=== PATIENT | female | born 1950 | race Caucasian/White ===

== ENCOUNTER → 2019-11-08 13:34 | Outpatient (CLI) | payer MEDICARE, MEDICAID, SELFPAY ==
--- NOTE | 2019-11-08 13:40 | MM_ITS ---
PROCEDURE: MM DIG MAMM BI DX W/CAD Digital Breast Tomosynthesis Included CLINICAL INDICATION: BREAST PAIN L, L BREAST MASS there is a history of breast cancer in the patient's niece. The patient complains of tenderness near the nipple left breast. COMPARISON: No exams were available for comparison TECHNIQUE: Standard CC and MLO images and 3D Tomosynthesis was obtained. R2 CAD reviewed. FINDINGS: Moderate diffuse scattered fibroglandular densities are seen throughout both breasts. Prominent linear calcifications are seen in both breast primarily in the subareolar regions most consistent with secretory disease. There are 2 mole markers right breast. There is a somewhat suspicious spherical mass seen just deep to the nipple left breast. It has somewhat ill-defined borders. Ultrasound performed the same date showed a complex cyst at this location which was somewhat tender to pressure of the transducer measuring 1.2 x 1.3 by 0.9 cm. There are couple nodes seen in the left axilla with loss of the normal architecture. There is no other suspicious lesion in either breast and no suspicious microcalcifications. Since there are no previous studies for comparison recommend the patient be scheduled for biopsy and or cyst aspiration. IMPRESSION: Moderate breast density with somewhat suspicious asymmetric density just deep to the nipple left breast at the site of the patient's complaint shown to be a complex cystic structure on ultrasound. BI-RAD Category: 4 Suspicious Abnormality - Biopsy Considered FOLLOW-UP: BIO Biopsy Recommended (A letter has been sent to the patient regarding results of the study.) Dictated by: Dr. Ed Bradford MD 11/08/2019 20:[address] Ed Bradford MD in [place] 11/08/2019 20:47
--- NOTE | 2019-11-08 13:41 | US_ITS ---
PROCEDURE: US BREAST LT COMPLETE CLINICAL INDICATION: BREAST PAIN L, L BREAST MASS COMPARISON: No exams were available for comparison FINDINGS: There is a small oval cystic lesion near the nipple at the 12 o'clock position measuring 0.6 by 0.6 x 0.3 cm. Just behind the nipple there is a hypoechoic cystic appearing structure with internal echoes measuring 1.2 by 1.3 x 0.9 cm. Some of the images show a somewhat ill-defined border of the lesion at the interface with the adjacent breast parenchyma. There are 2 nodes in the axilla both showing loss of normal echo architecture. IMPRESSION: Somewhat suspicious and likely complex cyst at the site of the patient's complaint the recommend the patient be scheduled for biopsy and or cyst aspiration Dictated by: Dr. Ed Bradford MD 11/08/2019 20:[address] Ed Bradford MD in [place] 11/08/2019 20:50
== END ==
PROVIDERS: PCP Internal Medicine Adolescent Medicine; Visit Provider Nurse Practitioner Family
DX: N64.4 Mastodynia (principal); N63.20 Unspecified lump in the left breast, unspecified quadrant
CPT/HCPCS: 76641; 77062; 77066; G0279

== ENCOUNTER → 2019-12-04 12:41 | Outpatient (CLI) | payer MEDICARE, MEDICAID, SELFPAY ==
--- NOTE | 2019-12-04 13:40 | US_ITS ---
PROCEDURE: US FNA BREAST CLINICAL INDICATION: L CYST BREAST Complex cystic lesion of the left breast with abnormal mammogram COMPARISON: US US BREAST LT COMPLETE from 11/08/2019 FINDINGS: Following obtaining informed consent and time-out procedure using sonographic guidance and local anesthesia 1 percent buffered lidocaine, 21 gauge needle was inserted into the complex cystic lesion of the left breast. Approximately 5 cc of turbid whitish material was aspirated and sent for cytology and culture and sensitivity. The cavity was nearly completely evacuated. There was some residual hypo echogenicity at this area for which fine needle aspiration was performed. Following this, under sonographic guidance FNA was performed of a small left axillary lymph node. There were no immediate complications. Cytology: Left axillary node: Negative for malignant cells Breast FNA 1.: Negative for malignant cells Breast FNA 2: Negative for malignant cells The fluid was also sent for culture and sensitivity which is not available at the time of this reading. IMPRESSION: Status post ultrasound-guided left breast and axillary node FNA without immediate complications as described above. The complex cystic lesion in the retroareolar area did appear to represent a small abscess. Please correlate with culture and sensitivity Dictated by: Timothy Acosta MD 12/10/2019 13:07 Timothy Acosta MD in [place] 12/10/2019 13:07
== END ==
PROVIDERS: PCP Internal Medicine Adolescent Medicine; Visit Provider Surgery
DX: N63.32 Unspecified lump in axillary tail of the left breast (principal)
CPT/HCPCS: 10005; 10006; 76942; 87070; 87077; 87186; 87205; 88173; 88305

== ENCOUNTER 2024-01-11 07:32 | Outpatient (CLI) | payer MEDICARE, MEDICAID, SELFPAY ==
[2024-01-11 09:03] LABS: Occult Blood,Stool Negative (Negative)
[2024-01-11 15:56] LABS: Occult Blood,Stool Negative (Negative)
== END 2024-01-11 23:59 | disposition home or self-care (01) ==
PROVIDERS: Nurse Practitioner Family; PCP Internal Medicine Adolescent Medicine; Visit Provider Internal Medicine Adolescent Medicine
DX: R53.81 Other malaise (principal); D64.9 Anemia, unspecified
CPT/HCPCS: 82272; G0328

== ENCOUNTER 2024-06-21 10:20 | Outpatient (CLI) | payer MEDICARE, MEDICAID, SELFPAY ==
[2024-06-21 11:04] LABS: Occult Blood,Stool Positive (Negative)
== END 2024-06-21 23:59 | disposition home or self-care (01) ==
LOC: LAB.DROPOF 10:21
PROVIDERS: PCP Internal Medicine Adolescent Medicine; Visit Provider Internal Medicine Adolescent Medicine
DX: D64.9 Anemia, unspecified (principal)
CPT/HCPCS: 82272; G0328

== ENCOUNTER 2024-07-10 06:35 | Day surgery (SDC) | payer MEDICARE, MEDICAID, SELFPAY ==
[2024-07-09 14:57] VITALS: BMI 45.7
[2024-07-10] VITALS (7 sets, daily range): BP systolic 99–153; BP diastolic 54–85; PULSE 60–73; RESP 18–22; TEMP 36.1–36.4; O2SAT 94–99
--- NOTE | 2024-07-10 07:02 | P.HP_ITS ---
HPI HPI HPI: This is a 73-year-old female who presents for EGD/colonoscopy. She has a long- standing history of anemia. No definitive hematemesis/melena. No bright red blood per rectum. [facility] Disclaimer: The information contained in this section may have been updated after the patient was seen, as this information can be updated by other users. Medical History Hereditary and idiopathic neuropathy Cardiac murmur Hyperlipemia Normocytic anemia Physical debility Gout Obesity Muscle spasm Chronic pain Hypothyroid Diabetes Hypertension Osteoarthritis Polio Surgical History (Updated 07/10/24 @ 07:16 by Kinsey Chávez RN) H/O removal of cyst History of cholecystectomy History of surgery on lower extremity History of surgery on arm Family History (Updated 07/10/24 @ 07:16 by Kinsey Chávez RN) Heart disease Breast cancer Cancer Social History Smoking Status: Former smoker alcohol intake: never substance use type: denies use current occupational status: disabled Travel in the last 8 weeks: None Have you lived/traveled outside [place] in past 30 days?: No Contact w/someone who lives/traveled outside US past 30 days?: No Exposure to someone with infectious disease in past 14 days?: No Do you have a fever (greater than 100.4 F or 38 C)?: No Have you tested positive for COVID-19: No Exposed to someone with COVID-19 in past 14 days?: No Do you have a sore throat?: No Do you have a cough?: No Do you have any weakness?: No Do you have any diarrhea?: No Are you experiencing any unusual bleeding?: No Do you have any muscle aches/pain?: No Do you have any abdominal pain?: No Are you experiencing loss of taste or smell?: No Other Medical History Have you received the Pneumonia Vaccine: Yes Review of Systems Review of Systems Review of systems:: pertinent systems reviewed and negative unless documented below Meds Home Medications and Allergies Home Medications ?Medication ?Instructions ?Recorded ?Confirmed ?Type acetaminophen 500 mg capsule 1,000 mg PO QID PRN Pain 11/21/19 07/09/24 History allopurinol 100 mg tablet 100 mg PO QHS 11/21/19 07/09/24 History allopurinol 300 mg tablet 300 mg PO QAM 11/21/19 07/09/24 History colchicine 0.6 mg capsule 0.6 mg PO QAM 11/21/19 07/09/24 History docusate sodium 250 mg capsule 250 mg PO BID 11/21/19 07/09/24 History fluticasone furoate 50 50 mcg inhalation DAILY 11/21/19 07/09/24 History mcg/actuation blister powder for inhalation furosemide 20 mg tablet (Lasix) 40 mg PO QAM 11/21/19 07/09/24 History gabapentin 100 mg capsule 100 mg PO TID 11/21/19 07/09/24 History hydrocodone 10 mg-acetaminophen 1 tab PO Q8H PRN Pain 11/21/19 07/09/24 History 300 mg tablet levothyroxine 50 mcg capsule 50 mcg PO DAILY 11/21/19 07/09/24 History loratadine 10 mg tablet (Allergy 10 mg PO DAILY 11/21/19 07/09/24 History Relief (loratadine)) losartan 100 mg tablet 100 mg PO DAILY 11/21/19 07/09/24 History polyethylene glycol 3350 17 gram 17 g PO DAILY 11/21/19 07/09/24 History oral powder packet (Miralax) potassium chloride 20 mEq 20 meq PO BID 11/21/19 07/09/24 History tablet,extended release sennosides 8.6 mg capsule (senna) 17.2 mg PO BID PRN Constipation 11/21/19 07/09/24 History sitagliptin phosphate 100 mg 50 mg PO DAILY 11/21/19 07/09/24 History tablet (Januvia) metformin 500 mg tablet 500 mg PO DAILY 12/12/19 07/09/24 History sod picosulf 10 mg-magnes 3.5 175 ml PO DAILY 2 doses #350 mL 06/22/24 07/09/24 Rx gram-citric 12 gram/175 mL oral solution (Clenpiq) baclofen 10 mg tablet 10 mg PO DAILY 07/09/24 07/09/24 History carvedilol 12.5 mg tablet 12.5 mg PO BID 07/09/24 07/09/24 History ferrous sulfate 324 mg (65 mg 324 mg PO DAILY 07/09/24 07/09/24 History iron) tablet,delayed release montelukast 10 mg tablet 10 mg PO DAILY 07/09/24 07/09/24 History (Singulair) pantoprazole 40 mg tablet,delayed 40 mg PO DAILY 07/09/24 07/09/24 History release New Prescriptions to Start Prescriptions: Allergies Allergy/AdvReac Type Severity Reaction Status Date / Time sulfamethoxazole (From Allergy Unknown Verified 07/10/24 07:10 Bactrim) allergy reaction trimethoprim (From Bactrim) Allergy Unknown Verified 07/10/24 07:10 allergy reaction Exam Data for Last 24 hours I & O for Last 24 hours: Intake & Output 07/07/24 07/08/24 07/09/24 07/10/24 11:59 11:59 11:59 11:59 Weight 242 lb Constitutional Constitutional: no acute distress *Routine HEENT Exam Head: Present normocephalic Eye: Present EOMI ENT: Present mucous membranes moist *Routine Neck Exam Neck: Absent tenderness *Routine Respiratory Exam Respiratory: Absent respiratory distress *Routine Cardiovascular Exam Cardiovascular: Absent tachycardia *Routine Abdominal Exam Abdominal: Present soft and obese *Routine Rectal Exam Rectal:: deferred *Routine Genitalia Exam Genitalia:: deferred *Routine Extremities Exam Extremities: Absent tenderness *Routine Skin Exam Skin: Absent erythema *Routine Neurological Exam Neurological: Present alert Assessment and Plan *Assessment and plan (1) Anemia: Status: Acute Qualifiers: Anemia type: unspecified type Qualified Code(s): D64.9 - Anemia, unspecified Category: Medical Code(s): D64.9 - Anemia, unspecified Plan: Esophagogastroduodenoscopy/colonoscopy today I have discussed the risks and benefits including, but not limited to: Bleeding Infection Damage to surrounding tissue Inherent risks of sedation The patient agrees to proceed.
--- NOTE | 2024-07-10 07:04 | HMH.SCOPE ---
Procedure: Date: 07/10/24 Patient Date of :: 1950 Procedure Performed:: Esophagogastroduodenoscopy with biopsy Colonoscopy with polypectomy Indications:: Anemia Performing Provider:: Obed Silverman MD Referring Provider:: . Sedation:: Monitored anesthesia care Procedure:: After informed consent was obtained the patient was taken to the endoscopy suite. Sedation ensued after the patient was transferred to the left lateral decubitus position. Pulse, blood pressure, and oxygen saturation were monitored throughout the procedure. The endoscope was advanced beyond the duodenal bulb. Retroflexion within the gastric lumen was accomplished. The gastroscope was carefully removed. Digital rectal exam revealed no significant abnormality. The colonoscope was placed in position. The entire colon was evaluated. The colonoscope was carefully removed and the patient was transferred to recovery in stable condition. Please see findings and specimens below for detail. Findings:: Gastroesophageal junction at 30 cm Small sliding hiatal hernia Mild to moderate patchy gastritis No active bleeding Bowel preparation relatively poor Moderate tortuosity Fairly severe spasticity/lack of relaxation Hemorrhoidal cushions Polyps (see specimens) Specimens:: Antral biopsy Adjacent lobulated polyps at 55 cm (cold snare) Pedunculated polyp at 20 cm (hot snare) Large complex pedunculated polyp at 8 cm (hot snare) Recommendations:: Timing of repeat colonoscopy is pending pathology will likely be around 1-2 years with extended/alternate bowel preparation. Follow-up pathology Continue proton pump inhibition Complications:: No immediate Estimated blood obtained (mL): 1 Colonoscopy Component Colonoscopy Component Was a colonoscopy performed during today's procedure?: Yes Recommended follow up colonoscopy of at least 10 years?: No If no, follow up colonoscopy recommended in ___ years?: (See above) Reason for not recommending >/= 10 yr follow-up interval?: (See above)
--- NOTE | 2024-07-10 09:28 | EXP.ANES.CKL ---
[facility] Disclaimer: The information contained in this section may have been updated after the patient was seen, as this information can be updated by other users. Medical History Hereditary and idiopathic neuropathy Cardiac murmur Hyperlipemia Normocytic anemia Physical debility Gout Obesity Muscle spasm Chronic pain Hypothyroid Diabetes Hypertension Osteoarthritis Polio Surgical History (Updated 07/10/24 @ 07:16 by Kinsey Chávez RN) H/O removal of cyst History of cholecystectomy History of surgery on lower extremity History of surgery on arm Family History (Updated 07/10/24 @ 07:16 by Kinsey Chávez RN) Other Breast cancer Cancer Heart disease Social History (Updated 07/10/24 @ 07:17 by Kinsey Chávez RN) Smoking Status: Former smoker alcohol intake: never substance use type: denies use current occupational status: disabled Travel in the last 8 weeks: None caffeine: Yes [facility] Anesthesia Checklist Patient Identification Patient Identification: Verbal (Name & ) Structural Data Admitted From: Home Planned Operative Procedure/s: egd,colonoscopy Consent for Planned Operative Procedure(s) Verified: Yes NPO Status Verified Time NPO: 00:00 Airway Assessment Mallampati Score:: Class II C-Spine Mobility Assessed: Yes TMJ Mobility Assessed: Yes Dentition: Edentulous Neurological Assessment Level of Consciousness: Awake, Alert and Appropriate Anesthesia Plan Anesthesia Risk discussed: Yes Anesthesia Plan: Verified ASA Class: III Anesthesia Type: MAC
[2024-07-10 11:08] LABS: POC Glucose,Bedside 159 (70-110)
== END 2024-07-10 09:10 | disposition home or self-care (01) ==
PROVIDERS: PCP Internal Medicine Adolescent Medicine; Visit Provider Surgery
PROC: 0DJ08ZZ Inspection of Upper Intestinal Tract, Via Natural or Artificial Opening Endoscopic (ICD-10-PCS; CPT 45378; principal; 2024-07-10 07:30)
DX: D64.9 Anemia, unspecified (principal); K44.9 Diaphragmatic hernia without obstruction or gangrene; K29.70 Gastritis, unspecified, without bleeding; K64.9 Unspecified hemorrhoids; K63.5 Polyp of colon
CPT/HCPCS: 43239; 45385; 82962; 88305

== ENCOUNTER 2024-09-14 09:55 | Outpatient (CLI) | payer MEDICARE, MEDICAID, SELFPAY ==
--- OUTSIDE RECORDS SUMMARY | 2024-08-22 08:20 | XMS_ITS | Continuity of Care Document ---
Author Organization [address] [place] [address] Address [address] [facility] [address] [place] [address] Phone Care Team Providers Care Photographic Spotter Name Role Phone Shell Stevenson OD Unavailable Unavailable Allergies, Adverse Reactions, Alerts Substance Reaction Status Criticality sulfamethoxazole Active No Informat ion trimethoprim Active No Information sulfamethoxazole Active No Informat ion Medications Medication Instructions Dosage Effective Dates (start - stop) Status Comments Januvia 50 mg tablet - Activ e baclofen 10 mg tablet - Acti ve docusate sodium 250 mg capsule - Active ferrous sulfate 325 mg (65 mg iron) tablet - Active triamcinolone acetonide 0.1 % topical cream - Active Vitamin C 500 mg tablet - Ac tive carvedilol 12.5 mg tablet - Active pantoprazole 40 mg tablet,delayed release - Active furosemide 40 mg tablet - Ac tive Gas Relief Extra Strength 125 mg chewable tablet - Active Clenpiq 10 mg-3.5 gram-12 gram/175 mL oral solution - Active balsam angelina-castor oil topical ointment - Active montelukast 10 mg tablet - A ctive calcium carbonate 600 mg-vitamin D3 5 mcg (200 unit) tablet - Active methocarbamol 500 mg tablet - Active senna 8.6 mg tablet - Active carvedilol 3.125 mg tablet - Active Chest Congestion Relief 100 mg/5 mL oral liquid - Active famotidine 40 mg tablet - Ac tive ondansetron HCl 4 mg tablet - Active loratadine 10 mg tablet - Ac tive acetaminophen 500 mg tablet - Active docusate calcium 240 mg capsule - Active ROBAFEN 100 MG/5ML LIQUID - Active hydrochlorothiazide 25 mg tablet - Active levothyroxine 50 mcg tablet - Active tizanidine 4 mg tablet - Act seema colchicine 0.6 mg tablet - A ctive metformin 500 mg tablet - Ac tive hydrocodone 10 mg-acetaminophen 325 mg tablet - Active Januvia 100 mg tablet - Acti ve fluticasone propionate 50 mcg/actuation nasal spray,suspension - Active allopurinol 300 mg tablet - Active losartan 100 mg tablet - Act seema potassium chloride ER 20 mEq tablet,extended release - Active allopurinol 100 mg tablet - Active gabapentin 100 mg capsule - Active Lagevrio 200 mg capsule (EUA) - Active ketoconazole 2 % topical cream - Active nystatin 100,000 unit/gram topical powder - Active Humalog U-100 Insulin 100 unit/mL subcutaneous cartridge inject by subcutaneous route per prescriber's instructions. Insulin dosing requires individualization. 0.00 - Active furosemide 20 mg tablet take 1 tablet by oral route every day 20 MG - Active Keppra 250 mg tablet take 2 tablet by oral route 2 times every day 500 MG - Active Procedures Procedure Date REMOVE IMPACTED EAR WAX DEBRIDE NAIL 6 OR MORE Debride mycotic, thick nails or more J REMOVE IMPACTED EAR WAX DEBRIDE NAIL 6 OR MORE DEBRIDE NAIL 6 OR MORE FUNDUS PHOTOGRAPHY COMPRE OPH EXAM EST PT 1/ DEBRIDE NAIL 6 OR MORE Low extemity neur exam docum DEBRIDE NAIL 6 OR MORE Low extemity neur exam docum DEBRIDE NAIL 6 OR MORE Diabetic Foot Exam Performed HEARING SERVICE, MISCELLANEOUS DEBRIDE NAIL 6 OR MORE Diabetic Foot Exam Performed FUNDUS PHOTOGRAPHY EYE EXAM & TREATMENT DEBRIDE NAIL 6 OR MORE Diabetic Foot Exam Performed DEBRIDE NAIL 6 OR MORE NURSING FAC CARE SUBSEQ TRIM NAIL(S) EYE EXAM & TREATMENT NURSING FAC CARE SUBSEQ DEBRIDE NAIL 1-5 TRIM NAIL(S) DEBRIDE NAIL 6 OR MORE NURSING FAC CARE SUBSEQ TRIM SKIN LESION DEBRIDE NAIL 6 OR MORE Diabetic Foot Exam Performed EYE EXAM & TREATMENT TRIM SKIN LESION DEBRIDE NAIL 6 OR MORE Diabetic Foot Exam Performed TRIM SKIN LESION DEBRIDE NAIL 6 OR MORE COMPREHENSIVE HEARING TEST Assessment for hearing aid NURSING FAC CARE SUBSEQ DEBRIDE NAIL 6 OR MORE Diabetic Foot Exam Performed DEBRIDE NAIL 6 OR MORE Diabetic Foot Exam Performed EYE EXAM & TREATMENT DEBRIDEMENT OF NAIL(S) BY ANY METHOD(S); 6 OR MORE Diabetic Foot Exam Performed DEBRIDEMENT OF NAIL(S) BY ANY METHOD(S); 6 OR MORE Diabetic Foot Exam Performed DEBRIDEMENT OF NAIL(S) BY ANY METHOD(S); 6 OR MORE Diabetic Foot Exam Performed DEBRIDEMENT OF NAIL(S) BY ANY METHOD(S); 6 OR MORE Diabetic Foot Exam Performed EYE EXAM & TREATMENT DEBRIDEMENT OF NAIL(S) BY ANY METHOD(S); 6 OR MORE Diabetic Foot Exam Performed Compsve Oral Eval- New/Est Pat 18 Prophylaxis - Adult DEBRIDEMENT OF NAIL(S) BY ANY METHOD(S); 6 OR MORE Diabetic Foot Exam Performed Advance Directives Directive Yes / No Effective Date File Name No Information Encounters Encounter Description Practice Location Reason(s) For Visit Diagnoses Date Provider Providers Copied on Encounter [address] [place] [address], [id number], tel:[phone] [facility] No Information 5 Graham Goff. , [place]. [address] [place] [address], [id number], tel:[phone] [facility] ear care exam (chief complaint) Impacted cerumen, right ear 5 Gisella Garcia , [place]. Referring Provider: Joseph Galindo. [address] [place] [address], [id number], tel:[phone] [facility] Nail dystrophyOnycho gryphosisOther specified peripheral vascular diseasesType 2 diabetes mellitus with diabetic peripheral angiopathy without gangreneTinea unguium Jul- 5 [facility] , [place]. [address] [place] [address], [id number], tel:[phone] [facility] No Information 5 [place], [place]. [facility] [place], [address], [place], [place], [id number], [place] tel:[phone] [facility] Type 2 diabetes mellitus with diabetic peripheral angiopathy without gangreneOther specified peripheral vascular diseasesNail dystrophyOnycho gryphosis 5 [place], [place]. [facility] [place], [address] [place], [place] [address], [place], [place], [id number], [place] tel:[phone] [facility] ear care exam (chief complaint) Impacted cerumen, bilateral Dec-0 4 [place]. Referring Provider: Joseph Galindo. [facility] [place], [address] [place], [place] [address] [address], [place], [place], [id number], [place] tel:[phone] [facility] Tinea unguiumType 2 diabetes w diabetic peripheral angiopath w/o gangrene 4 Jeremy Navas [address] [place] [address], [address], [place], [address], [place]. [facility] [place], [address] [place], [place] [address] [address], [place], [place], [id number], [place] tel:[phone] [facility] Tinea unguiumType 2 diabetes w diabetic peripheral angiopath w/o gangrene 4 Jeremy Navas [address] [place] [address], [address], [place], [address], [place]. Referring Provider: Joseph Galindo. [facility] [place], [address] [place], [place] [address] [address], [place], [place], [id number], [place] tel:[phone] [facility] Diabetic eye exam (chief complaint) Cataract (chief complaint) Type 2 diabetes mellitus without complicationsCo mbined forms of age-related cataract, bilateral 4 [place]. Referring Provider: Joseph Galindo. [facility], [address] [place] [address] [address], [place], [place], [id number], [place] tel:[phone] [facility] Tinea unguiumType 2 diabetes w diabetic peripheral angiopath w/o gangrene 4 Jeremy Seaman. [address], [address], [place], [address], [place]. Referring Provider: Joseph Galindo. [facility], [address] [place], [place] [address] [address], [place], [place], [id number], [place] tel:[phone] [facility] No Information 4 Jeremy Seaman. [address], [address], [place], [address], [place]. [facility], [address] [place] [address] [address], [place], [place], [id number], [place] tel:[phone] [facility] Tinea unguiumType 2 diabetes w diabetic peripheral angiopath w/o gangrene 3 Jeremy Seaman. [address], [address], [place], [address], [place]. [facility], [address] [place], [place] [address] [address], [place], [place], [id number], [place] tel:[phone] [facility] Tinea unguiumType 2 diabetes w diabetic peripheral angiopath w/o gangrene 3 Jeremy Seaman. [address], [address], [place], [address], [place]. Referring Provider: Joseph Galindo. [address] [place] [address], [address] [place], [place] [address] [address], [place], [place], [id number], [place] tel:[phone] [facility] Encounter for exam of ears and hearing w/o abnormal findings 3 [place], [place]. Referring Provider: Joseph Galindo. [facility], [address] [place] [address] [address], [place], [place], [id number], [place] tel:[phone] [facility] Tinea unguiumType 2 diabetes w diabetic peripheral angiopath w/o gangrene 3 Jeremy Navas [address], [address], [place], [address], [place]. Referring Provider: Joseph Galindo. [address] [place] [address], [address] [place] [address] [address], [place], [place], [id number], [place] tel:[phone] [facility] Procedure and treatment not carried out for other reasons 3 Sheri-Hard jose de jesus Shabnam. [address], [address], [place], [address], [place]. Referring Provider: Joseph Galindo. [address] [place] [address], [address] [place], [place] [address] [address], [place], [place], [id number], [place] tel:[phone] [facility] No Information 3 Sheri-Hard jose de jesus Shabnam. [address], [address], [place], [address], [place]. [address] [place] [address], [address] [place], [place] [address] [address], [place], [place], [id number], [place] tel:[phone] [facility] Diabetic eye exam (chief complaint) Cataract (chief complaint) Combined forms of age-related cataract, bilateralType 2 diabetes mellitus without complications 2 [place]. Referring Provider: Joseph Galindo. [address] [place] [address], [address] [place], [place] [address] [address], [place], [place], [id number], [place] tel:[phone] [facility] Tinea unguiumType 2 diabetes w diabetic peripheral angiopath w/o gangrene 2 Jeremy Navas [address] [facility], [address], [place], [address], [place]. [address] [place] [address], [address] [place] [address] [address], [place], [id number], [place] tel:[phone] [facility] Tinea unguiumType 2 diabetes w diabetic peripheral angiopath w/o gangrene [address] [place] [address], [address], [place], [address], [place]. Referring Provider: Joseph Galindo. NURSING FAC CARE SUBSEQ [facility], [address] [place] [address] [address], [place], [place], [id number], [place] tel:[phone] [facility] Tinea unguiumType 2 diabetes w diabetic peripheral angiopath w/o gangrene 2 Alisson Marzena. , [place]. Referring Provider: Mayelin Walker. [address] [place] [address], [address] [facility], [place], [place], [id number], [place] tel:[phone] [facility] Type 2 diabetes w diabetic peripheral angiopath w/o gangreneTinea unguium Fe 2 Alisson Marzena. , [place]. Referring Provider: Joseph Galindo. [address] [place] [address] [facility] [place], [address] [place], [place] [address], [place], [place], [id number], [place] tel:[phone] [facility] Decreased vision (chief complaint) Type 2 diabetes mellitus without complicationsAg e-related nuclear cataract, right eyeCombined forms of age-related cataract, left eye 2 Kreinest Gretel. [address] [facility], [address], [place], [address], [place]. Referring Provider: Joseph Galindo. NURSING FAC CARE SUBSEQ [address] [place] [address], [address] [place], [place] [address] [address], [place], [place], [id number], [place] tel:[phone] [facility] ear care exam (chief complaint) Sensorineural hearing loss, bilateral 1 [place]-Hard jose de jesus Shabnam. [address] [facility], [address], [place], [address], [place]. Referring Provider: Joseph Galindo. [address] [place] [address], [address] [place] [address], [place], [place], [id number], [place] tel:[phone] [facility] Tinea unguiumType 2 diabetes w diabetic peripheral angiopath w/o gangrene 1 Alisson Marzena. , [place]. Referring Provider: Joseph Galindo. NURSING FAC CARE SUBSEQ [address] [place] [address], [address] [place] [address], [place], [place], [id number], [place] tel:[phone] [facility] Tinea unguiumType 2 diabetes w diabetic peripheral angiopath w/o gangrene 1 Alisson Marzena. , [place]. Referring Provider: Joseph Galindo. [address] [place], [place] [address], [address] [facility], [place], [place], [id number], [place] tel:[phone] [facility] Tinea unguiumCorns and callositiesType 2 diabetes w diabetic peripheral angiopath w/o gangrene 1 Jeremy Seaman. [address] [facility], [address], [place], [address], [place]. Referring Provider: Radha Andino. [facility], [address] [place], [place] [address] [address], [place], [place], [id number], [place] tel:[phone] [facility] Cataract (chief complaint) Type 2 diabetes mellitus without complicationsCo mbined forms of age-related cataract, bilateral 1 Royal Simon. [address] [facility], [place], [address], [place]. tel:[phone] Referring Provider: Joseph Galindo. [facility], [address] [facility], [place], [place], [id number], [place] tel:[phone] [facility] Tinea unguiumType 2 diabetes w diabetic peripheral angiopath w/o gangreneCorns and callosities 1 Jeremy Seaman. [address] [facility], [address], [place], [address], [place]. Referring Provider: Joseph Galindo. [facility] [place], [address] [facility] [address], [place], [place], [id number], [place] tel:[phone] [facility] Tinea unguiumType 2 diabetes w diabetic peripheral angiopath w/o gangreneCorns and callosities 0 Jeremy Seaman. [address] [facility], [address], [place], [address], [place]. Referring Provider: Karli Bell. [facility], [address] [place] [address] 300, [place], [place], [id number], [place] tel:[phone] [facility] Sensorineural hearing loss, bilateral Jan- 0 Canales Chelci. [address] [facility], [address], [place], [place], [id number], [place]. tel:[phone] Referring Provider: Joseph Galindo. [address] [place] [address], [address] [facility] [address], [place], [place], [id number], [place] tel:[phone] [facility] No Information 0 Canales Martha. [address] [facility], [address], [place], [place], [id number], [place]. tel:[phone] NURSING FAC CARE SUBSEQ [address] [place] [address], [id number] [place], [place] [address], [place], [place], [id number], [place] tel:[phone] [facility] ear care exam (chief complaint) Encounter for exam of ears and hearing w/o abnormal findings 0 Sheri-Hard jose de jesus Shabnam. [address] [facility], [address], [place], [address], [place]. Referring Provider: Joseph Galindo. [address] [place] [address], [address] [place] [address] 300, [place], [place], [id number], [place] tel:[phone] [facility] Tinea unguiumType 2 diabetes w diabetic peripheral angiopath w/o gangrene 0 Jeremy Seaman. [address] [facility], [address], [place], [address], [place]. Referring Provider: Joe Gibbs. [address] [place] [address], [address] [facility] [address], [place], [place], [id number], [place] tel:[phone] [facility] Tinea unguiumType 2 diabetes w diabetic peripheral angiopath w/o gangrene 0 Jeremy Seaman. [address] [facility], [address], [place], [address], [place]. Referring Provider: Joseph Galindo. [address] [place] [address], [address] [place] [address], [place], [place], [id number], [place] tel:[phone] [facility] Diabetic eye exam (chief complaint) Type 2 diabetes mellitus without complicationsAg e-related nuclear cataract, bilateral 0-202 0 Royal Simon. [address] [facility], [place], [address], [place]. [phone] Referring Provider: Joseph Galindo. [facility] [place], [address] [facility], [place], [place], [id number], [place] tel:[phone] [facility] Tinea unguiumType 2 diabetes w diabetic peripheral angiopath w/o gangrene 9 Jeremy Navas [address] [facility], [address], [place], [address], [place]. Referring Provider: Joseph Galindo. [facility] [place], [address], [place], [place], [id number], [place] tel:[phone] [facility] Tinea unguiumType 2 diabetes w diabetic peripheral angiopath w/o gangrene 9 Jeremy Seaman. [address] [facility], [address], [place], [address], [place]. Referring Provider: Joseph Galindo. [facility], [address] [place], [place] [address], [place], [place], [id number], [place] tel:[phone] [facility] Tinea unguiumType 2 diabetes w diabetic peripheral angiopath w/o gangrene 9 Jeremy Seaman. [address] [facility], [address], [place], [address], [place]. Referring Provider: Joseph Galindo. [facility], [address] [facility], [place], [place], [id number], [place] tel:[phone] [facility] Tinea unguiumType 2 diabetes w diabetic peripheral angiopath w/o gangrene 9 Jermey Navas [address] [facility], [address], [place], [address], [place]. Referring Provider: Joseph Galindo. [facility], [address] [place], [place] [address] [address], [place], [place], [id number], [place] tel:[phone] [facility] medical eye problem (chief complaint) Type 2 diabetes mellitus without complicationsAg e-related nuclear cataract, bilateral Feb- 9 Cheng Majano. [address] [facility], [address], [place], [address], [place]. Referring Provider: Joseph Galindo. [address] [place] [address], [address] [facility], [place], [place], [id number], tel:[phone] [facility] Tinea unguiumType 2 diabetes w diabetic peripheral angiopath w/o gangrene 8 Jeremy Seaman. [address] [facility], [address], [place], [place], [facility], . Referring Provider: Joseph Galindo. [address] [place] [address], [address] [facility], [place], [place], [id number], tel:[phone] [facility] Encounter for dental exam and cleaning w/o abnormal findings 8 Natalie Du. [address] [facility], [address], [place], [place], [facility], . tel:[phone] Referring Provider: Joseph Galindo. [address] [place] [address], [address] [facility], [place], [place], [id number], tel:[phone] [facility] Tinea unguiumType 2 diabetes w diabetic peripheral angiopath w/o gangrene 8 Jeremy Seaman. [address] [facility], [address], [place], [place], [facility], . Referring Provider: Joseph Galindo. Family History Family Member Type Diagnosis Age At Onset No Information Payers Payer name Insurance type Covered republican ID Authoriza tion(s) Medicare [facility] [id number] Medicaid [facility] [id number] Social History Type Description Quantity Date Captured Comments Sex Female Smoking Status No Information Chief Complaint And Reason For Visit No Information Reason For Referral Reason For Referral No Information Plan Of Treatment Date Type Action Status Appointment Herlinda Goode BOOKED Patient Education Learning About Your Ear s completed Patient Education Diabetes Foot Health: C are Instructions completed Patient Education Diabetes Foot Health: C are Instructions completed Patient Education Diabetic Retinopathy: C are Instructions completed Patient Education Diabetes Foot Health: C are Instructio~ completed Patient Education Diabetes Foot Health: C are Instructio~ completed Patient Education Earwax Blockage: Care I nstructions completed Patient Education Diabetes Foot Health: C are Instructio~ completed Patient Education Diabetic Retinopathy: C are Instructio~ completed Patient Education Diabetes Foot Health: C are Instructio~ completed Patient Education Diabetes Foot Health: C are Instructio~ completed Patient Education Diabetes Foot Health: C are Instructio~ completed Patient Education Diabetes Foot Health: C are Instructio~ completed Patient Education Reduced Vision: Care In structions completed Patient Education Toenail Fungus: Care In structions completed Patient Education Diabetes Foot Health: C are Instructio~ completed History Of Present Illness Encounter Date Complaint History Of Prese nt Illness Diabetic eye exam The 73 year ol d patient presents for evaluation of Diabetic eye exam in the right eye and left eye. It occurs always. The onset was gradual. The symptom is constant. Cataract Cataract Diabetic eye exam The 71 year ol d female presents for evaluation of Diabetic eye exam in the right eye and left eye. It occurs always. The onset was gradual. The symptom is constant. Decreased vision The 70 year old female presents for evaluation of Decreased vision in the right eye and left eye. It occurs doing close work. The onset was gradual. It affects near vision. The symptom is infrequent. The condition is moderate. Cataract The 70 year old female presents for evaluation of Cataract in the right eye and left eye. Seems worse ear care exam pt is to be seen as needed. pt does not think she is having any issues with her ears, but wants them checked. Patient denies history of cerumen impaction. Patient is not interested in audiology services at this time. Diabetic eye exam The 68 year ol d female presents for evaluation of Diabetic eye exam in the right eye and left eye. Amblyopia OS medical eye problem The 67 year old female presents for evaluation of medical eye problem in the right eye and left eye. It occurs all the time. The onset was gradual. It affects VA not affected. The symptom is frequent. The condition is moderate. Cataract check Functional Status Date Functional Assessmen t No Information Instructions Date Instruction Additional Infor yon Performed Cerumen Re moval as per protocol, right ear cleared. Follow up in 9-12 months for reevaluation for chronic cerumen impaction. F/u with Audiology as scheduled. Related to Impacted cerumen, right ear A diabetic exam perf ormed. discussed importance of good foot care and shoes. Educational material was left with the facility. Related to Type 2 diabetes mellitus with diabetic peripheral angiopathy without gangrene Discussed using comp ression stockings to assist in localize swelling and venous return, and the parts counterman benefits of using compression stockings. Reinforced the importance of proper adherence to using the briana hose, and compression stockings. Will continue to monitor. Related to Other specified peripheral vascular diseases All of the documente d thickened nails (which includes those nails 2 mm or more in thickness, and possible mycotic component to the nails) were debrided in both length and thickness using both a nail nipper and an electric rotary shear grinder operator in an atraumatic fashion; this was performed in an attempt to prevent pain and reduce risk of infection. Alcohol applied to the digits afterwards. Related to Onychogryphosis All documented dystr ophic nails were reduced in length as needed to prevent pain and other symptoms. 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 Reinforced the importance of proper adherence to using the briana hose, and compression stockings. Will continue to monitor. Related to Other specified peripheral vascular diseases All documented thick ened nails were debrided using a rotary tool and nail nipper. Related to Onychogryphosis All documented dystr ophic nails were reduced in length as needed to prevent pain and other symptoms. Related to Nail dystrophy Performed cerumen re moval as per protocol. AU cleared. Follow up for reevaluation for chronic cerumen impaction. Patient declines referral to resaw tailer at this time. Related to Impacted cerumen, bilateral Toenails 1-5 b/l wer e debrided in length and thickness without incident. Follow up in 2-3 months. Related to Tinea unguium Toenails 1-5 b/l wer e debrided in length and thickness without incident. Follow up in 2-3 months. Related to Tinea unguium Return in 12-15 fred hs for dilated fundus exam. 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 We will monitor at regular intervals. Related to Type 2 diabetes mellitus without complications Follow up - Return i n 12-15 months for dilated fundus exam. Related to Combined forms of age-related cataract, bilateral Impression/Plan - Ca taracts are moderate and are affecting visual acuity; however, no treatment recommended at this time. We will monitor for progression. 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 Follow up in 2-3 months. Related to Tinea unguium Toenails 1-5 b/l wer e debrided in length and thickness without incident. Follow up in 2-3 months. Related to Tinea unguium Toenails 1-5 b/l wer e debrided in length and thickness without incident. Follow up in 2-3 months. Related to Tinea unguium See prn for complaints Related t o Encounter for exam of ears and hearing w/o abnormal findings Toenails 1-5 b/l wer e debrided in length and thickness without incident. Follow up in 2-3 months. Related to Tinea unguium Follow up prn. Related to Proce dure and treatment not carried out for other reasons Return in 12-15 fred hs for dilated fundus exam. Related to Type 2 diabetes mellitus without complications Impression/Plan - No active diabetic retinopathy present in either eye. We will monitor at regular intervals. Related to Type 2 diabetes mellitus without complications Follow up - Return i n 12-15 months for dilated fundus exam. Related to Type 2 diabetes mellitus without complications Impression/Plan - Ca taracts are moderate and are affecting visual acuity; however, no treatment recommended at this time. We will monitor for progression. 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 Follow up in 2-3 months. Related to Tinea unguium Toenails 1-5 b/l wer e debrided in length and thickness without incident. Follow up in 2-3 months. Related to Tinea unguium nails of [facility], examination performed today. Will follow up in 2-3 months. Related to Tinea unguium Toenails 1-5 b/l wer e trimmed without incident. Follow up in 2-3 months. Related to Tinea unguium We will schedule an appoinment in 12-15 months for a dilated fundus exam. Related to Combined forms of age-related cataract, left eye Impression/Plan - Ca taracts are moderate and are affecting visual acuity; however, no treatment recommended at this time. We will monitor for progression. Related to Combined forms of age-related cataract, left eye Follow up - We will schedule an appoinment in 12-15 months for a dilated fundus exam. Related to Combined forms of age-related cataract, left eye Impression/Plan - Ca taracts are moderate and are affecting visual acuity; however, no treatment recommended at this time. We will monitor for progression. Related to Age-related nuclear cataract, right eye Impression/Plan - No active diabetic retinopathy present in either eye. We will monitor at regular intervals. Related to Type 2 diabetes mellitus without complications Follow up prn. Related to Senso rineural hearing loss, bilateral Toenails 1-5 b/l wer e debrided in length and thickness without incident. Follow up in 2-3 months. Related to Tinea unguium Nails 1-5 debrided b /l without incident Related to Tinea unguium All of the calluses were debrided/pared to prevent further tissue breakdown and pain. Related to Corns and callosities Toenails 1-5 b/l wer e debrided in length and thickness without incident. Follow up in 2-3 months. Related to Tinea unguium Impression/Plan - Ca taracts are moderate and are affecting visual acuity; however, no treatment recommended at this time. We will monitor for progression. 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 We will monitor at regular intervals. Related to Type 2 diabetes mellitus without complications All of the calluses were debrided/pared to prevent further tissue breakdown and pain. Related to Corns and callosities Toenails 1-5 b/l wer e debrided in length and thickness without incident. Follow up in 2-3 months. Related to Tinea unguium All of the calluses were debrided/pared to prevent further tissue breakdown and pain. Related to Corns and callosities Toenails 1-5 b/l wer e debrided in length and thickness without incident. Follow up in 2-3 months. Related to Tinea unguium Follow up prn. Related to [facility] nt for exam of ears and hearing w/o abnormal findings Toenails 1-5 b/l wer e debrided in length and thickness without incident. Follow up in 2-3 months. Related to Tinea unguium Toenails 1-5 b/l wer e debrided in length and thickness without incident. Follow up in 2-3 months. Related to Tinea unguium Impression/Plan - Ca taracts are moderate and are affecting visual acuity; however, no treatment recommended at this time. We will monitor for progression. Related to Age-related nuclear cataract, bilateral Impression/Plan - No active diabetic retinopathy present in either eye. We will monitor at regular intervals. Related to Type 2 diabetes mellitus without complications Toenails x 6 were de brided in length and thickness without incident. Remainder of toenails were trimmed. Follow up in 2-3 months. Related to Tinea unguium Toenails 1-5 b/l wer e debrided in length and thickness without incident. Follow up in 2-3 months. Related to Tinea unguium Toenails 1-5 b/l wer e debrided in length and thickness without incident. Follow up in 2-3 months. Related to Tinea unguium Toenails 1-5 b/l wer e debrided in length and thickness without incident. Follow up in 2-3 months. Related to Tinea unguium Follow up - We will schedule an appoinment in 12-15 months for a dilated fundus exam. Impression/Plan - Ca taracts are moderate and are affecting visual acuity; however, no treatment recommended at this time. We will monitor for progression. Related to Age-related nuclear cataract, bilateral Impression/Plan - No active diabetic retinopathy present in either eye. We will monitor at regular intervals. Related to Type 2 diabetes mellitus without complications Toenails 1-5 b/l wer e debrided in length and thickness without incident. Follow up in 2-3 months. Related to Tinea unguium Toenails 1-5 b/l wer e debrided in length and thickness without incident. Follow up in 2-3 months. Related to Tinea unguium Assessments Type Assessment Date No Information Patient Care Teams Name Effective Dates (start - stop) Status Members No Information
--- OUTSIDE RECORDS SUMMARY | 2024-09-14 09:58 | XMS_ITS | Clinical Summary ---
Author Organization [facility] Address [address] [place], [place] [address] Phone Care Team Providers Care Corsage Maker Name Role Phone Unavailable Primary Care Provider Unavailabl e Medications * This document contains information received from the source organization and may not represent a complete record from that organization. No known medications Active Problems Problem Noted Date Diagnosed Date Medication monitoring encounter 02/05/2015 Recurrent depressive disorder, current episode m ild 12/01/2014 Agitation 12/01/2014 Social History Tobacco Use Types Packs/Day Years Used Date Smoking Tobacco: Never Alcohol Use Standard Drinks/Week Comments Not Asked 0 (1 standard drink = 0.6 oz pur e alcohol) Comments Unknown Sex and Gender Information Value Date Recorded Sex Assigned at Not on file Legal Sex Female 10:07 PM EDT Gender Identity Not on file Sexual Orientation Not on file Obstetrics History Plan of Treatment Health Maintenance Due Date Last Done Comments Wellness Exam Medicare 07/19/1953 Hepatitis C Screening 07/19/1969 DTaP/TDaP/Td (1 - Tdap) 07/19/1970 Breast Cancer Screening 1991 Cologuard 07/19/1996 Colon Cancer Screening 07/19/1996 Colonoscopy 07/19/1996 FIT 07/19/1996 Sigmoidoscopy 07/19/1996 Virtual Colonography 07/19/1996 Pneumococcal Vaccine 50+ (1 of 1 - PCV) 07/19/2001 Zoster (1 of 2) 07/19/2001 Bone Density Screening 07/19/2016 COVID-19 Vaccine (2023-2 5 season) 2023 Influenza Vaccine (Season Ended) 2024 Hepatitis B Vaccine Aged Out No longe r eligible based on patient's age to complete this topic Meningococcal B Vaccine Aged Out No l onger eligible based on patient's age to complete this topic Insurance [facility] [address] [place] [address] [address] [place] [address] MED[place] [facility] [address] [place] [address] [place] [address] [place]
[2024-09-14 10:15] LABS: Occult Blood,Stool Negative (Negative)
== END 2024-09-14 23:59 | disposition home or self-care (01) ==
LOC: LAB.DROPOF 09:55
PROVIDERS: PCP Internal Medicine Adolescent Medicine; Visit Provider Nurse Practitioner Family
DX: D64.9 Anemia, unspecified (principal)
CPT/HCPCS: 82272; G0328

== ENCOUNTER 2024-09-17 20:28 | Outpatient (CLI) | payer MEDICARE, MEDICAID, SELFPAY ==
--- OUTSIDE RECORDS SUMMARY | 2024-09-17 20:31 | XMS_ITS | Clinical Summary ---
Author Organization [facility] Address [address] [place], [place] [address] Phone Care Team Providers Care Wax Ball Knock Out Worker Name Role Phone Unavailable Primary Care Provider [...] patient's age to complete this topic Insurance [facility] [address] [place] [address] [address] [place] [address] [place] [facility] [address] [place] [address] [address] [place] [address] [place]
[2024-09-17 20:50] LABS: Occult Blood,Stool Negative (Negative)
== END 2024-09-17 23:59 | disposition home or self-care (01) ==
LOC: LAB.DROPOF 20:30
PROVIDERS: PCP Internal Medicine Adolescent Medicine; Visit Provider Nurse Practitioner Family
DX: D64.9 Anemia, unspecified (principal)
CPT/HCPCS: 82272; G0328

== ENCOUNTER 2025-02-06 13:43 | Outpatient (CLI) | payer MEDICARE, MEDICAID, SELFPAY ==
--- NOTE | 2025-02-06 | CA_ITS ---
APPROVED REPORT EXAM: Comprehensive 2D, Doppler, and color-flow Echocardiogram Brushing Operator: ADALID Farr, RVS Ht: 5 ft 2 in Wt: 250lbs BSA: 2.10 BP: 157/70 mmHg Indications: HTN, HLD, DM, Ex-smoker,Murmur, History of childhood polio-wheelchair bound Echo Enhancing Agent Comments: TDS: Due to patient factors 2D Dimensions IVSd 1.24 cm LVEF (Visual) 66.20 % PWd 0.92 cm LA Volume 43.10 mL LVDd 4.26 cm LA Volume Index 20.00 mL/m2 (M/F) 16-34 LVDs 2.72 cm Left Atrium 3.00 cm M-Mode Dimensions RVDd 1.57 cm (0.9-2.6) LA Diam 3.27 cm (1.9-4.0) LVDd 5.85 cm (3.5-5.7) LVDs 3.11 cm (3.5-5.7) IVSd 1.29 cm (0.6-1.1) PWd 1.09 cm (0.6-1.1) EF (Teich) 77.50% EPSs 0.44 cm FS 46.80% EDV (Teich) 169.90 mL TAPSE 1.83 (<1.7) ESV (Teich) 38.20 mL LV Diastology E Decel Time 263 (160-240 msec) E/A Ratio 0.93 MED A' 10.80 cm/s LAT A' 12.30 cm/s Aortic Valve NELI Index 0.90 cm2/m2 AoV Peak Chad. 144.0 (50-130 cm/s) AO Peak GR. 8.30 mmHg AO Mean GR. 4.20 (<5 mmHg) AO VTI 30.3 (18-25 cm) NELI (VTI) 1.93 (2.5-4.5 cm2) Mitral Valve MV A Velocity 90.0 (40-130 cm/s) E/A Ratio 0.93 Left Ventricle The left ventricle is normal size. Left ventricular systolic function is normal. The left ventricular ejection fraction is within the normal range. There is increased left ventricular wall thickness. There is normal LV segmental wall motion. Transmitral Doppler flow pattern suggests impaired LV relaxation. LVEF is 55% Right Ventricle The right ventricle is normal size. The right ventricular systolic function is normal. Atria Left atrium is mildly dilated. Right atrium is mildly dilated. There is no color Doppler evidence of interatrial shunt. Aortic Valve The aortic valve is mildly thickened. There is no hemodynamically significant aortic valvular stenosis. No aortic regurgitation is present. Mitral Valve The mitral valve is normal in structure. No evidence of mitral valve stenosis. Trace mitral regurgitation is present. Tricuspid Valve The tricuspid valve leaflets are thin and pliable. Trace tricuspid regurgitation. There is insufficient TR jet to estimate RVSP. Pulmonic Valve The pulmonary valve is grossly normal in structure. Trace pulmonic valve regurgitation is present. Great Vessels The aortic root is normal in size. IVC is normal in size and collapses >50% with inspiration. Pericardium There is no pericardial effusion. Other Information Study Quality: Technically Difficult Conclusion Normal biventricular systolic function. Mild biatrial dilation. No significant valvular stenosis or regurgitation. Electronically signed by : Zeinab Bird MD 02/10/2025 15:46:34
--- OUTSIDE RECORDS SUMMARY | 2025-02-06 13:46 | XMS_ITS | Clinical Summary ---
Author Organization [facility] Address [address] [place], [place] [address] Phone Care Team Providers Care Nutrition Instructor Name Role Phone Unavailable Primary Care Provider [...] on file Sexual Orientation Not on file Plan of Treatment Health Maintenance Due Date Last Done Comments Wellness Exam Medicare 07/19/1953 Hepatitis C Screening 07/19/1969 DTaP/TDaP/Td (1 - Tdap) 07/19/1970 Breast Cancer Screening 1991 Cologuard 07/19/1996 Colon Cancer Screening 07/19/1996 Colonoscopy 07/19/1996 FIT 07/19/1996 Sigmoidoscopy 07/19/1996 Virtual Colonography 07/19/1996 Pneumococcal Vaccine 50+ (1 of 1 - PCV) 07/19/2001 Zoster (1 of 2) 07/19/2001 Bone Density Screening 07/19/2016 COVID-19 Vaccine (2024-2 6 season) 2024 Influenza Vaccine (#1) 2024 Hepatitis B Vaccine Aged Out No longe r eligible based on patient's age to complete this topic Meningococcal B Vaccine Aged Out No l onger eligible based on patient's age to complete this topic Insurance [facility] [address] [place] [address] [address] [place] [address] [place] [facility] [address] [facility] [place] [address] [place] [address] [place]
== END 2025-02-06 23:59 | disposition home or self-care (01) ==
LOC: RT 13:44
PROVIDERS: PCP Internal Medicine Adolescent Medicine; Visit Provider Nurse Practitioner Family
DX: I11.9 Hypertensive heart disease without heart failure (principal); E78.5 Hyperlipidemia, unspecified; E11.9 Type 2 diabetes mellitus without complications; Z87.891 Personal history of nicotine dependence
CPT/HCPCS: 93306